=== PATIENT | female | born 1970 ===

== ENCOUNTER 2018-03-03 13:05 | Outpatient (CLI) | payer OTHER ==
--- NOTE | 2018-03-03 14:14 | RAD ---
CERVICAL SPINE 4 VIEWS: HISTORY: Cervical pain. FINDINGS: Cervical vertebrae maintain normal height and alignment. Disk spaces are preserved. There are mild degenerative changes. Anterior osteophytes are noted at C4, C5, and C6. Minimal posterior spondylit ic change. Posterior elements are normally aligned. IMPRESSION: There are mild degenerative changes of the cervical spine with anterior osteophytes as described austin guan. POS: [facility]
== END 2018-03-03 13:06 | disposition home or self-care (01) ==
LOC: RAD-FRANK 13:05
PROVIDERS: ATTEND Family Medicine
DX: M47.892 Other spondylosis, cervical region (principal); M25.78 Osteophyte, vertebrae; R20.0 Anesthesia of skin
CPT/HCPCS: 72040